=== PATIENT | female | born 1950 | race Caucasian/White ===

== ENCOUNTER → 2022-03-07 | Outpatient (CLI) | payer MEDICARE, SELFPAY ==
[2022-03-07 12:25] LABS: Erythrocyte Sedimentation Rate 18 mm/hr (0-30)
[2022-03-07 12:44] LABS: Absolute Lymphocyte Count 1.98 X10^3/uL (0.83-4.51); Absolute Neutrophil Count 3.1 X10^3/uL (2.0-7.7); Basophil# 0.05 X10^3/uL; Basophil% 0.9 % (0-1); Eosinophil# 0.13 X10^3/uL; Eosinophils% 2.3 % (0-5); Hematocrit 42.6 % (37-47); Hemoglobin 14.5 g/dL (12.0-15.0); Lymphocyte # 1.98 X10^3/ul (0.83-4.51); Lymphocyte % 34.4 % (19-41); Mean Platelet Vol. 10.9 fl (6.2-12.0); Monocyte% 8.7 % (0-10); NRBC Flagged by Analyzer 0 % (0-5); Neutrophil # 3.08 X10^3/uL (2.7-7.7); Neutrophil % 53.5 % (47-70); Platelet Count 341 K/mm3 (150-450); RBC Distribution Width CV 12.6 % (11.6-14.6); RBC Distribution Width SD 40.7 fl (35.1-43.9); Red Blood Count 4.84 M/mm3 (4.2-5.4); White Blood Count 5.8 K/mm3 (4.4-11.0)
[2022-03-07 13:11] LABS: Hepatitis B Surface Antibody Non-Reactive; Hepatitis B Surface Antigen Non-Reactive (Nonreactive); Hepatitis C Antibody Non-Reactive (Nonreactive)
[2022-03-07 13:42] LABS: ALB/GLOB Ratio 1.1 RATIO (0.9-2.4); AST(SGOT) 22 U/L (15-37); Alanine Aminotransfer ALT/SGPT 27 U/L (13-56); Albumin, Serum 4.1 g/dL (3.2-5.0); Alkaline Phosphatase 101 U/L (45-117); Anion Gap 6 (5-15); BUN 14 mg/dL (7-18); BUN/Creat Ratio 21.5 RATIO (10-20); CRP < 2.90 mg/L (0.0-3.0); Calcium,Total 9.9 mg/dL (8.5-10.1); Chloride 106 mmol/L (98-107); Creatinine, Serum 0.65 mg/dL (0.55-1.02); EST Glomerular Filtration Rate 95 mL/min (>60); Est Glom Filt Rate - Afr Amer 114 mL/min (>60); Globulin 3.9 g/dL (2.2-4.2); Glucose 91 mg/dL (74-106); Potassium 4.6 mmol/L (3.5-5.1); Rheumatoid Factor < 10.0 IU/mL (<15); Sodium Level 139 mmol/L (136-145)
[2022-03-08 16:21] LABS: ANTINUCLEAR ANTIBODIES DIRECT Negative (Negative)
[2022-03-10 15:55] LABS: CCP IgG Antibodies 1 units (0-19)
== END | disposition home or self-care (01) ==
PROVIDERS: Referring Provider Internal Medicine Rheumatology; Visit Provider Internal Medicine Rheumatology
DX: M06.4 Inflammatory polyarthropathy (principal); M19.041 Primary osteoarthritis, right hand; M47.892 Other spondylosis, cervical region; M85.80 Other specified disorders of bone density and structure, unspecified site; K52.832 Lymphocytic colitis; K21.9 Gastro-esophageal reflux disease without esophagitis; I10 Essential (primary) hypertension; E78.5 Hyperlipidemia, unspecified; J45.909 Unspecified asthma, uncomplicated
CPT/HCPCS: 36415; 80053; 85025; 85652; 86038; 86140; 86200; 86431; 86706; 86803; 87340

== ENCOUNTER → 2022-05-16 | Outpatient (CLI) | payer MEDICARE, SELFPAY ==
[2022-05-16 12:06] LABS: Absolute Lymphocyte Count 3.14 X10^3/uL (0.83-4.51); Absolute Neutrophil Count 5.1 X10^3/uL (2.0-7.7); Basophil# 0.06 X10^3/uL; Basophil% 0.6 % (0-1); Eosinophils% 1.1 % (0-5); Hematocrit 44.2 % (37-47); Hemoglobin 14.5 g/dL (12.0-15.0); Lymphocyte # 3.14 X10^3/ul (0.83-4.51); Lymphocyte % 33.5 % (19-41); Mean Corp Hgb Conc 32.8 g/dL (32-36); Mean Corpuscular Hgb 29.9 pg (27.0-32.0); Mean Corpuscular Volume 91.1 fL (81-99); Mean Platelet Vol. 10.4 fl (6.2-12.0); Monocyte# 0.93 X10^3/uL; Monocyte% 9.9 % (0-10); NRBC Flagged by Analyzer 0 % (0-5); Neutrophil # 5.11 X10^3/uL (2.7-7.7); Neutrophil % 54.6 % (47-70); Platelet Count 330 K/mm3 (150-450); RBC Distribution Width CV 13.4 % (11.6-14.6); RBC Distribution Width SD 43.4 fl (35.1-43.9); Red Blood Count 4.85 M/mm3 (4.2-5.4); White Blood Count 9.4 K/mm3 (4.4-11.0)
[2022-05-16 12:48] LABS: ALB/GLOB Ratio 1.1 RATIO (0.9-2.4); AST(SGOT) 9 U/L (15-37); Alanine Aminotransfer ALT/SGPT 27 U/L (13-56); Albumin, Serum 3.8 g/dL (3.2-5.0); Alkaline Phosphatase 84 U/L (45-117); Anion Gap 7 (5-15); BUN 16 mg/dL (7-18); BUN/Creat Ratio 22.5 RATIO (10-20); Calcium,Total 9.6 mg/dL (8.5-10.1); Chloride 103 mmol/L (98-107); Creatinine, Serum 0.71 mg/dL (0.55-1.02); EST Glomerular Filtration Rate 85 mL/min (>60); Est Glom Filt Rate - Afr Amer 103 mL/min (>60); Globulin 3.6 g/dL (2.2-4.2); Glucose 79 mg/dL (74-106); Potassium 3.3 mmol/L (3.5-5.1); Protein, Total 7.4 g/dL (6.4-8.2); Sodium Level 141 mmol/L (136-145)
== END | disposition home or self-care (01) ==
PROVIDERS: Referring Provider Internal Medicine Rheumatology; Visit Provider Internal Medicine Rheumatology
DX: Z79.899 Other long term (current) drug therapy (principal); M06.4 Inflammatory polyarthropathy
CPT/HCPCS: 36415; 80053; 85025